=== PATIENT | male | born 2000 | race Hispanic/Latino ===

== ENCOUNTER 2022-06-01 23:41 | Emergency (ER) | payer OTHER ==
[2022-06-02] MEDS ORDERED: Ketorolac Tromethamine 30 MG/ML VIAL ONE (01:08)
== END 2022-06-02 01:19 | disposition home or self-care (01) ==
LOC: CSHERS 23:41
DX: M54.42 Lumbago with sciatica, left side (principal)
CPT/HCPCS: 96372; 99283; J1885

== ENCOUNTER 2023-01-26 13:59 | Emergency (ER) | payer OTHER, SELFPAY ==
[2023-01-26 16:03] LABS: SARS-CoV-2 NAA Rapid Test DETECTED (NotDetected)
== END 2023-01-26 16:17 | disposition home or self-care (01) ==
LOC: CSHERS 13:59
DX: U07.1 COVID-19 (principal)
CPT/HCPCS: 99283

== ENCOUNTER 2023-01-30 12:31 | Emergency (ER) | payer SELFPAY ==
[2023-01-30 14:43] LABS: SARS-CoV-2 NAA Rapid Test DETECTED (NotDetected)
== END 2023-01-30 15:11 | disposition home or self-care (01) ==
LOC: CSHERS 12:31
DX: U07.1 COVID-19 (principal)
CPT/HCPCS: 99283; U0002